=== PATIENT | female | born 1945 | race Caucasian/White ===

== ENCOUNTER 2017-01-07 05:47 | Day surgery (SDC) | payer MEDICARE, OTHER ==
[~2017-01-07] VITALS: Ht 160 cm; Wt 70.8 kg
[2017-01-07] MEDS ORDERED: FOSAMAX 70MG TA70 MG PO (06:04)
[2017-01-07] MEDS ORDERED: FERROUSAL325 MG PO (06:05)
[2017-01-07] MEDS ORDERED: TIROSINT88 MC1 PO (06:07)
[2017-01-07] MEDS ORDERED: OMEGA-3 FISH1000 MG PO (06:13)
[2017-01-07] MEDS ORDERED: PRINIVIL10 MG PO (06:13)
[2017-01-07] MEDS ORDERED: ZOCOR 20MG20 MG PO (06:14)
[2017-01-07] MEDS ORDERED: MAXZIDE-25MG TA1 TAB PO (06:15)
[2017-01-07] MEDS ORDERED: AMBIEN 5MG TABLE5 MG PO (06:16)
[2017-01-07 06:54] VITALS: BP 154/78; PULSE 76; TEMP 97.6
[2017-01-07 08:24] VITALS: BP 108/54; PULSE 65; TEMP 97.4
[2017-01-07 08:40] VITALS: BP 138/72; PULSE 69
[2017-01-07 08:55] VITALS: BP 124/63; PULSE 67
== END 2017-01-07 09:07 | disposition home or self-care (01) ==
LOC: SDCO 05:47
DX: G57.81 Other specified mononeuropathies of right lower limb (principal); M79.89 Other specified soft tissue disorders; M77.51 Other enthesopathy of right foot and ankle; M20.21 Hallux rigidus, right foot; I10 Essential (primary) hypertension; E03.9 Hypothyroidism, unspecified; Z85.3 Personal history of malignant neoplasm of breast
CPT/HCPCS: J0690; J2704; J3010; J7120

== ENCOUNTER → 2017-01-28 | Outpatient (CLI) | payer MEDICARE, OTHER ==
[~2017-01-28] MED LIST: AMBIEN 5MG TABLE5 MG PO; FERROUSAL325 MG PO; FOSAMAX 70MG TA70 MG PO; MAXZIDE-25MG TA1 TAB PO; OMEGA-3 FISH1000 MG PO; PRINIVIL10 MG PO; TIROSINT88 MC1 PO; ZOCOR 20MG20 MG PO
== END ==
LOC: MC.RAD 14:53
DX: Z12.31 Encounter for screening mammogram for malignant neoplasm of breast (principal); Z98.890 Other specified postprocedural states

== ENCOUNTER → 2018-05-25 | Outpatient (CLI) | payer MEDICARE, OTHER | LOC: MC.RAD 04-20 11:20 | DX: Z12.31 Encounter for screening mammogram for malignant neoplasm of breast (principal) ==

== ENCOUNTER → 2019-02-08 | Outpatient (CLI) | payer MEDICARE, OTHER | LOC: COL.RAD 09:44 | DX: D69.6 Thrombocytopenia, unspecified (principal) ==

== ENCOUNTER → 2019-11-15 | Outpatient (CLI) | payer MEDICARE, OTHER | LOC: MC.RAD 12:59 | DX: Z12.31 Encounter for screening mammogram for malignant neoplasm of breast (principal); N64.89 Other specified disorders of breast; R60.9 Edema, unspecified; Z90.12 Acquired absence of left breast and nipple; Z98.890 Other specified postprocedural states ==

== ENCOUNTER → 2021-05-13 | Outpatient (CLI) | payer MEDICARE, OTHER | LOC: MC.RAD 11:30 | DX: Z12.31 Encounter for screening mammogram for malignant neoplasm of breast (principal); Z85.3 Personal history of malignant neoplasm of breast ==

== ENCOUNTER → 2022-07-28 | Outpatient (CLI) | payer MEDICARE, OTHER | LOC: MC.RAD 10:38 | DX: Z12.31 Encounter for screening mammogram for malignant neoplasm of breast (principal) ==

== ENCOUNTER → 2023-09-02 | Outpatient (CLI) | payer MEDICARE | LOC: MC.RAD 10:19 | DX: Z12.31 Encounter for screening mammogram for malignant neoplasm of breast (principal) ==

== ENCOUNTER 2023-11-18 16:56 | Inpatient (IN) | payer MEDICARE, OTHER ==
[~2023-11-18] VITALS: Ht 160 cm; Wt 74.1 kg
[2023-11-18] MEDS ORDERED: NS 1,000 ML IV ONE (17:30)
[2023-11-18] MEDS ORDERED: Acetaminophen 500 MG TAB PO ONE (17:30)
[2023-11-18 17:58] LABS: BILIRUBIN,TOTAL 0.6 mg/dL (0.2-1.2); C-REACTIVE PROTEIN 3.15 mg/dL (0.00-0.50); CALCIUM 9.6 mg/dL (8.4-10.2); CREATININE, serum 1.31 mg/dL (0.57-1.11); POTASSIUM 3.8 mEq/L (3.5-4.5)
[2023-11-18] MEDS ORDERED: fentaNYL 50 MCG/ML 2 ML VIAL IV ONE (18:30)
[2023-11-18 18:41] LABS: COLLECTION METHOD CLEAN CATCH
[2023-11-18] MEDS ORDERED: Iohexol 300 - 100 ML VIAL IV ONE (18:45)
[2023-11-18] MEDS ORDERED: NS 100 ML IV ONE (18:46)
[2023-11-18 18:48] LABS: URINE APPEARANCE CLEAR (CLEAR/HAZY); URINE BLOOD 2+ (NEGATIVE); URINE COLOR YELLOW (YELLOW); URINE GLUCOSE NEGATIVE (NEGATIVE); URINE KETONE NEGATIVE (NEGATIVE); URINE NITRATE POSITIVE (NEGATIVE); URINE PROTEIN(semi-quant) NEGATIVE (NEGATIVE); URINE UROBILINOGEN 0.2 E.U/dL (0.2-1.0)
[2023-11-18 19:54] LABS: HEMOGLOBIN 12.2 g/dl (12.5-16.0); MEAN CELL VOLUME 85 fl (80.0-100.0); MEAN CORPUSCULAR HEMOGLOBIN 28 pg (27-31); MEAN CORPUSCULAR HGB CONC 33 g/dl (33.0-37.0); MEAN PLATELET VOLUME 12.7 fl (7.4-10.4); PLATELET COUNT 74 K/mm3 (130-400); RED BLOOD COUNT 4.29 M/mm3 (4.10-5.30); REDCELL DISTRIBUTION WIDTH-CV 14.1 % (11.5-14.5)
[2023-11-18 20:01] LABS: HEMATOCRIT 36.6 % (37.0-47.0)
[2023-11-18 20:13] LABS: BAND 8 % (0-10); EOSINOPHIL 1 % (0-4); LYMPHOCYTE 2 % (20.0-51.0); NEUTROPHILS 88 % (42.0-75.2)
[2023-11-18] MEDS ORDERED: LR 1,000 ML IV SCH (20:30)
[2023-11-18] MEDS ORDERED: Ondansetron 4 MG/2 ML VIAL IV PRN (20:30)
[2023-11-18] MEDS ORDERED: Acetaminophen 325 MG TAB PO PRN (20:30)
[2023-11-18] MEDS ORDERED: cefTRIAXone 1 G in Water For Injection,Sterile 10 ML IV ONE (20:30)
[2023-11-18] MEDS ORDERED: NS 1,000 ML IV SCH (21:00)
[2023-11-18] MEDS ORDERED: Lidocaine PF 2% (20 MG/ML) 5 ML VIAL ONE (21:10)
[2023-11-18] MEDS ORDERED: Ondansetron 4 MG/2 ML VIAL ONE (21:10)
[2023-11-18] MEDS ORDERED: dexAMETHasone 10 MG/ML VIAL ONE (21:10)
[2023-11-18] MEDS ORDERED: REQUIP2 MG PO (21:23)
[2023-11-18] MEDS ORDERED: LR 1,500 ML IV ONE (22:25)
[2023-11-18] MEDS ORDERED: ePHEDrine 50 MG/ML VIAL ONE (22:29)
[2023-11-18 23:52] VITALS: BP 98/61; PULSE 93; TEMP 97.7
[2023-11-19] VITALS (12 sets, daily range): BP systolic 84–124; BP diastolic 50–73; PULSE 60–95; TEMP 97.4–98.7
--- NOTE | 2023-11-19 00:30 | NUR ---
ORIENTED PATIENT TO ROOM. SHE DENIES ANY PAIN AT THIS TIME BUT IS REPORTING FEELING SOME PRESSURE IN HER LOWER ABDOMEN IF SHE NEEDS TO URINATE. AFTER DISCUSSING WITH HOSPITALIST, SINCE PATIENT IS ALERT AND ORIENTED FOLLOWING SURGERY SHE MAY HAVE WATER AND ICE CHIPS REQUESTED BY THE PATIENT. INSTRUCTED SENIOR PRINCIPAL LIGHT USE AND ENSURE CALL LIGHT WAS WITHIN REACH. BED IS LOCKED AND IN LOW POSITION. SYSTOLIC BLOOD PRESSURE HAS REMAINED IN THE 90s SINCE ARRIVING TO THE MEDICAL FLOOR, BUT MAP CONTINUES TO STAY ABOVE 65. SHE IS ALERT AND ORIENTED X 4 AND DENIES ANY OTHER NEEDS AT THIS TIME.
[2023-11-19 06:32] LABS: HEMOGLOBIN 11.4 g/dl (12.5-16.0); MEAN CELL VOLUME 86 fl (80.0-100.0); MEAN CORPUSCULAR HEMOGLOBIN 28 pg (27-31); MEAN CORPUSCULAR HGB CONC 32 g/dl (33.0-37.0); PLATELET COUNT 50 K/mm3 (130-400); REDCELL DISTRIBUTION WIDTH-CV 14.3 % (11.5-14.5)
[2023-11-19 06:35] LABS: HEMATOCRIT 35.3 % (37.0-47.0)
[2023-11-19 06:55] LABS: BILIRUBIN,TOTAL 0.5 mg/dL (0.2-1.2); CALCIUM 8.6 mg/dL (8.4-10.2); CREATININE, serum 0.94 mg/dL (0.57-1.11); POTASSIUM 4.1 mEq/L (3.5-4.5); TOTAL PROTEIN 5.5 g/dl (6.2-8.1)
[2023-11-19 07:51] LABS: BAND 37 % (0-10); LYMPHOCYTE 1 % (20.0-51.0); METAMYELOCYTE 1 % (0-0); NEUTROPHILS 59 % (42.0-75.2)
[2023-11-19 07:52] LABS: PLATELET ESTIMATE DECREASED (NORMAL)
--- NOTE | 2023-11-19 08:24 | NUR ---
Pt. inquired about advancing diet at bedside report. Spoke to hospitalist, Dr. Colin, who suggested calling urology before making any diet changes. Called on-call urologist, Dr. Zaldivar. He stated he was ok with advancing diet from NPO at this time. Reported back to hospitalist and she ordered an AHA diet for the pt. PCT, Hodan, ordered breakfast tray for pt.
--- NOTE | 2023-11-19 08:30 | NUR ---
Pt. resting in bed upon entry. Performed shift assessment. No outstanding findings. 16 fr glass to independent drainage. Noted clear yellow urine in glass bag. Pt. denies pain at this time and requesting to ambulate in the halls after breakfast. No complaints or further request at this time. Call light in reach.
[2023-11-19] MEDS ORDERED: Pantoprazole 40 MG in NS 10 ML IV SCH (09:00)
[2023-11-19] MEDS ORDERED: Ferrous Sulfate 325 MG TAB PO SCH (09:00)
[2023-11-19] MEDS ORDERED: Dextrose (Glucose) 15 GM (4 x 3.75 GM) Chewable TABLET PACK PO PRN (09:30)
[2023-11-19] MEDS ORDERED: Glucagon 1 MG VIAL IM PRN (09:30)
[2023-11-19] MEDS ORDERED: Dextrose 50% Water 25 GM/50 ML SYRINGE IV PRN (09:30)
[2023-11-19] MEDS ORDERED: VITAMIN B11000 MCG/M IM (10:34)
[2023-11-19] MEDS ORDERED: LR 1,000 ML IV SCH (12:00)
[2023-11-19] MEDS ORDERED: Insulin Lispro (HumaLOG) SQ SCH (12:00)
--- NOTE | 2023-11-19 13:02 | NUR ---
Requip is noted to be held on home medications. Pt. complains of RLS. Dr. Colin notified. New order received.
--- NOTE | 2023-11-19 14:28 | NUR ---
store worker met with pt to discuss discharge planning. She confirms she lives alone at [facility]. She sees Dr. Cr for PCP needs and obtains medications from [facility] with no difficulties. She confirms her insurance as Medicare A and B and [place]. She reports to be independent with ADLS and SW visualized her independent in her room. She has a walking stick for DME, but does not use it often. She confirmed the DPOA- on file listing her daughter, Ranjana [phone] as primary, then Floresita. Pt intends to return back to her apartment upon discharge. Discharge Plan: return to [facility] [place]
--- NOTE | 2023-11-19 16:49 | NUR ---
RAMON SCDs have not been worn today. Pt. has been ambulating halls and in room throughout the day. Encourage SCDs at night.
--- NOTE | 2023-11-19 18:50 | NUR ---
Pt. requested split dose of Requip for RLS. Notified hospitalist. No new orders received. Pt. has been ambulating independently in halls and room w/o c/o pain.
[2023-11-19] MEDS ORDERED: rOPINIRole 1 MG TAB PO SCH (20:00)
[2023-11-19] MEDS ORDERED: cefTRIAXone 1 G in Water For Injection,Sterile 10 ML IV SCH (20:30)
--- NOTE | 2023-11-19 20:33 | NUR ---
PATIENT IS SITTING IN CHAIR PLAYING CARDS WITH FAMILY AT BEDSIDE. DENIES ANY PAIN AT THIS TIME AND ALSO REPORTS THAT THE PRESSURE SHE HAD BEEN FEELING IN HER PELVIS IS NO LONGER PRESENT. SHE HAS RETURNED TO ROOM AIR WHICH IS HER BASELINE. CALL LIGHT IS WITHIN REACH. BED IS LOCKED AND IN LOW POSITION.
[2023-11-19] MEDS ORDERED: Atorvastatin 10 MG TAB PO SCH (21:00)
[2023-11-19] MEDS ORDERED: Simvastatin 20 MG **** subs to Atorvastatin 10 MG PO SCH (21:00)
[2023-11-20] VITALS (13 sets, daily range): BP systolic 112–136; BP diastolic 68–80; PULSE 52–80; TEMP 97.7–98.2
[2023-11-20 07:18] LABS: BASO % 0.2 % (0.0-2.0); EOS % 0.1 % (0.0-4.0); GRAN # 13.3 K/mm3 (1.4-6.5); GRAN % 84.1 % (42.2-75.2); HEMOGLOBIN 11.7 g/dl (12.5-16.0); LYMPH # 1.5 K/mm3 (1.2-3.4); LYMPH % 9.6 % (20.0-51.0); MEAN CELL VOLUME 87 fl (80.0-100.0); MEAN CORPUSCULAR HEMOGLOBIN 28 pg (27-31); MEAN CORPUSCULAR HGB CONC 33 g/dl (33.0-37.0); MEAN PLATELET VOLUME 14.8 fl (7.4-10.4); MONO # 0.8 K/mm3 (0.1-0.6); MONO % 5.2 % (1.7-9.3); RED BLOOD COUNT 4.12 M/mm3 (4.10-5.30); REDCELL DISTRIBUTION WIDTH-CV 14.4 % (11.5-14.5)
[2023-11-20 07:25] LABS: ALBUMIN 3.2 g/dL (3.4-4.8); CREATININE, serum 0.86 mg/dL (0.57-1.11); POTASSIUM 4.2 mEq/L (3.5-4.5)
[2023-11-20 07:40] LABS: BILIRUBIN,TOTAL 0.3 mg/dL (0.2-1.2)
[2023-11-20 07:44] LABS: HEMATOCRIT 35.8 % (37.0-47.0); PLATELET COUNT 66 K/mm3 (130-400)
--- NOTE | 2023-11-20 08:00 | NUR ---
Pt. sitting on bench upon entry. Administered scheduled meds per JUL. Performed shift assessment. No outstanding findings. Pt denies pain at this time. Shower requested. Prepared pt. for shower. No further requests or complaints at this time.
--- NOTE | 2023-11-20 11:15 | NUR ---
Credit Review Manager contacted Shalonda at [facility] and faxed clinical updates. PT/OT recommending return to [place]. Discharge Plan: [facility]
--- NOTE | 2023-11-20 12:54 | NUR ---
Emptied 750 mL pink-tinged urine from glass, clear in clarity. Pulled 10 ml clear water from balloon. Glass discontinued per order w/ balloon intact. Pericare performed. Pt. tolerated procedure well. Discontinued IVF per orders. IV site flushed w/ 5mL NS.
--- NOTE | 2023-11-20 15:34 | NUR ---
D: Rounder Hand stopped by room on rounds. A: Pt was resting and content sitting in her chair. Pt has no needs. Pt appreciated the visit. P: Rounder Hand informed pt that if she needed anything from the subassembly supervisor area to let her nurse know. Rounder Hand will follow up as needed.
--- NOTE | 2023-11-20 17:43 | NUR ---
Pt. reports last B/M was Thursday (11/17) and requests "something to help with constipation." Hospitalist, Dr. Colin, notified. New orders received. Pt. also states she takes and Ambien at home PRN and is requesting a dose tonight. Ambien is listed as a held PRN medication in pt.'s medication reconcilliation. Hospitalist notified. New orders received.
[2023-11-20] MEDS ORDERED: Docusate Sodium 100 MG CAP PO PRN (18:45)
[2023-11-20] MEDS ORDERED: Polyethylene Glycol 3350 17 GM PDS PO PRN (19:00)
[2023-11-20] MEDS ORDERED: Melatonin 3 MG TAB PO PRN (19:00)
[2023-11-20] MEDS ORDERED: rOPINIRole 1 MG TAB PO SCH (19:00)
--- NOTE | 2023-11-20 22:02 | NUR ---
Patient assessed around 2024. Alert and oriented, and able to make needs known. Reported pain to right abdomen/flank area. Given PRN Acetaminophen as requested. Also given Melatonin for insomnia, and Colace for constipation. Peripheral INT to left forearm. Received IV ABX per orders. Denies SOB and dyspnea. LS CTA. HRR. BSAx4. Patient does not want to wear SCDs, but has been up ambulating in hallway, as well as in room independently. Voices no questions, needs, or concerns at this time. In bed with call light within reach.
[2023-11-21 03:21] VITALS: BP 124/69; PULSE 54; TEMP 97.7
[2023-11-21 04:23] VITALS: BP_SYST 124
--- NOTE | 2023-11-21 06:03 | NUR ---
Patient complained of pain during the night, and discomfort with urination. Given PRN Acetaminophen. Call placed to NILAM Mooney, and one time order received for Azo, and given per orders. Patient reports it helped a lot. Voices no further questions, needs, or concerns at this time. In bed with call light within reach.
[2023-11-21 06:26] LABS: BASO # 0.1 K/mm3 (0.0-0.2); BASO % 0.5 % (0.0-2.0); EOS # 0.2 K/mm3 (0.0-0.7); EOS % 1.7 % (0.0-4.0); GRAN # 7.8 K/mm3 (1.4-6.5); GRAN % 72.2 % (42.2-75.2); HEMOGLOBIN 10.9 g/dl (12.5-16.0); LYMPH # 1.9 K/mm3 (1.2-3.4); LYMPH % 17.7 % (20.0-51.0); MEAN CELL VOLUME 87 fl (80.0-100.0); MEAN CORPUSCULAR HEMOGLOBIN 28 pg (27-31); MEAN CORPUSCULAR HGB CONC 32 g/dl (33.0-37.0); MEAN PLATELET VOLUME 13.8 fl (7.4-10.4); MONO # 0.7 K/mm3 (0.1-0.6); MONO % 6.5 % (1.7-9.3); PLATELET COUNT 53 K/mm3 (130-400); RED BLOOD COUNT 3.89 M/mm3 (4.10-5.30); REDCELL DISTRIBUTION WIDTH-CV 14.4 % (11.5-14.5)
[2023-11-21 06:28] LABS: HEMATOCRIT 33.8 % (37.0-47.0)
[2023-11-21 06:44] LABS: ALBUMIN 2.9 g/dL (3.4-4.8); BILIRUBIN,TOTAL 0.4 mg/dL (0.2-1.2); CALCIUM 8.8 mg/dL (8.4-10.2); CREATININE, serum 0.84 mg/dL (0.57-1.11); POTASSIUM 4.1 mEq/L (3.5-4.5); TOTAL PROTEIN 5.6 g/dl (6.2-8.1)
--- NOTE | 2023-11-21 07:00 | NUR ---
PT RESTING IN BED. BEDSIDE REPORT GIVEN AT THIS TIME. CALL LIGHT WITHIN REACH.
--- NOTE | 2023-11-21 07:46 | NUR ---
SHIFT ASSESSMENT COMPLETED AT THIS TIME. PT A&O X4. INT CLEAN, DRY AND INTACT IN LEFT AC. FLUSHES WITH NO COMPLICATIONS. PT REQUESTS PRN MEDICATION FOR CONSTIPATION. PT REPORTS LAST BOWEL MOVEMENT WAS 11/17 AND COLACE ADMINISTERED ON 11/19 WAS INEFFECTIVE. PRN MEDICATION ADMINISTERED ALONG WITH SCHEDULDED MORNING MEDICATIONS AT THIS TIME. PT VOICES NO OTHER CONCERNS. CALL LIGHT WITHIN REACH.
[2023-11-21 08:08] VITALS: BP 134/82; PULSE 54; TEMP 97.7
--- NOTE | 2023-11-21 11:03 | NUR ---
Data: Patient was walking the hallway when Pulverizing And Sifting Operator arrived on 3rd floor for rounds. This Pulverizing And Sifting Operator knows Patient from the [facility]. Pulverizing And Sifting Operator walked with Patient as she returned to her room. Assessment: Patient is hopeful to be discharged today. Plan of Care: Pulverizing And Sifting Operator provided supportive listening; a prayer; and a devotional. Patient thanked Pulverizing And Sifting Operator for the visit. Chaplains will remain available as needed/requested while Patient is admitted to this hospital.
[2023-11-21 11:48] VITALS: BP 136/77; PULSE 57; TEMP 97.5
[2023-11-21] MEDS ORDERED: CEFTIN500 MG PO (12:02)
[2023-11-21] MEDS ORDERED: ZOFRAN 4MG T4 MG/TAB PO (12:03)
[2023-11-21 12:29] VITALS: BP_SYST 136
[2023-11-21] MEDS ORDERED: valACYclovir 500 MG TAB PO ONE (12:30)
--- NOTE | 2023-11-21 12:30 | NUR ---
LAB IN PT ROOM AT BEDSIDE PERFORMING LAB DRAW.
--- NOTE | 2023-11-21 13:12 | NUR ---
DISCHARGE INSTURCTIONS/EDUCATION PROVIDED AT THIS TIME- PT VERBALIZES UNDERSTANDING. PT HAS NO QUESTIONS OR CONCERNS AT THIS TIME. INT DC'D.
[2023-11-21] MEDS ORDERED: ROXICODONE 55 MG/TAB PO (13:15)
--- NOTE | 2023-11-21 13:47 | NUR ---
PT ESCORTED TO PRIVATE VEHICLE AND DISCHARGED HOME WITH FRIEND.
== END 2023-11-21 13:47 | disposition home or self-care (01) | DRG 854 ==
LOC: COL.ER 16:56 → MEDICAL 20:32
PROVIDERS: Emergency Medicine; Nurse Practitioner Family; Urology; ADMIT Internal Medicine
PROC: 0T768DZ Dilation of Right Ureter with Intraluminal Device, Via Natural or Artificial Opening Endoscopic (ICD-10-PCS; principal; 2023-11-18 21:30)
DX: A41.89 Other specified sepsis (principal); N17.9 Acute kidney failure, unspecified; N13.9 Obstructive and reflux uropathy, unspecified; I10 Essential (primary) hypertension; E78.5 Hyperlipidemia, unspecified; E03.9 Hypothyroidism, unspecified; D53.9 Nutritional anemia, unspecified; D69.6 Thrombocytopenia, unspecified; G25.81 Restless legs syndrome
CPT/HCPCS: A4314; C1769; C2617; J0690; J0696; J1100; J1815; J2405; J2470; J2704; J3010; J7030; J7120; Q9967